=== PATIENT | female | born 1995 ===

== ENCOUNTER 2019-11-08 17:25 | Emergency (ER) | payer SELFPAY ==
[2019-11-08 17:53] VITALS: BP 120/65
--- NOTE | 2019-11-08 18:03 | Emergency Department Report ---
Chief Complaint: Back Pain/Injury Stated Complaint: BACK PAIN, FEVER Time Seen by Provider: 11/08/19 17:58 - HPI History of Present Illness: 23 y/o female comes in for back pain that she has for 2 years. Pain worst when she tries to get up. She also request refill on psych meds. No SI/HI - Exam Vital Signs: Vital Signs 11/08/19 17:30 Temperature 98.4 F Pulse Rate 85 Respiratory 18 Rate Blood Pressure 120/65 O2 Sat by Pulse 98 Oximetry Physical Exam: Axo times 3 NAD Back FROM no vertebra Ambulating with out difficulties. MSE screening note: Focused history and physical exam performed. Due to findings the following was ordered: 23 y/o female comes in for back pain that she has for 2 years. Pain worst when she tries to get up. She also request refill on psych meds. No SI/HI Recommend Over the continue Ibuprofen follow up with Primary Care and Psych. [place] [facility] [place]- MED SCREENING EXAM-LEFT Is pt being admited?: No Condition: Stable Additional Instructions: Recommend Over the continue Ibuprofen follow up with Primary Care and Psych. Referrals: ANALIA LAGUNA MD [Staff Physician] - 3-5 Days [facility] [Outside] - 3-5 Days [facility] [Outside] - 3-5 Days
== END 2019-11-08 18:34 | disposition left against medical advice (07) ==
LOC: ED 17:25
DX: R07.89 Other chest pain (principal); Z53.21 Procedure and treatment not carried out due to patient leaving prior to being seen by health care provider